=== PATIENT | female | born 1940 | race Caucasian/White ===

== ENCOUNTER → 2017-10-15 | Outpatient (CLI) | payer MEDICARE, OTHER ==
[~2017-10-15] MED LIST: ACETAMINOPHEN-1 EAC1 PO; ASPIRIN; ASPIRIN81 M2 PO; ATENOLOL; ATENOLOL 25 MG25 M1 PG; ATENOLOL 50 MG50 M1 PO; ATIVAN; CELEXA; CELEXA 10 MG TA10 M1 PO; CENTRUM SILVER1 EAC1; COREG25 MG; CYCLOBENZAPRINE10 MG PO; EXFORGE; FISH OIL 1,0001 EAC5 PO; FISHOIL; FLEXERIL; FLEXERIL PO; HCTZ; HYDROCHLOROTHIA25 M1 PO; HYDROCODON-ACE1 EAC5 PO; LORAZEPAM 1 MG T1 M1 PO; LORTAB 5 MG/5001 TA1; MULTIVITAMINS PO; PAIN & FEVER325 MG; PERCOCET 5-3251 EACH PO; PREDNISONE50 MG PO; TRIPLE ANTIBIOT30 G2; VALIUM10 MG; [UNRECOGNIZED DRUG - OTHER]; [UNRECOGNIZED DRUG - OTHER] PO
== END ==
LOC: M.RAD 10:39
DX: M79.671 Pain in right foot (principal); M79.672 Pain in left foot

== ENCOUNTER 2018-11-18 21:07 | Emergency (ER) | payer MEDICARE, OTHER ==
[~2018-11-18] VITALS: Ht 167.6 cm; Wt 127.0 kg
[2018-11-18] MEDS ORDERED: TRAMADOL 50 MG50 MG PO (21:21)
[2018-11-18 22:01] LABS: HEMATOCRIT 42.9 % (37.0-47.0); HEMOGLOBIN 14.4 gm/dL (12.0-15.0); MCH 31.9 pg (26.0-34.0); MCHC 33.5 g/dL (28.0-37.0); MCV 95.1 fL (80.0-100.0); MPV 9.6 fl. (7.2-11.1); NUCLEATED RBCS 0 /100WBC; PLATELET COUNT* 247 thou/uL (150-400); RBC 4.51 mil/uL (4.20-5.00); RDW-CV 14.3 % (10.5-14.5); WBC 13.6 thou/uL (4.0-11.0)
[2018-11-18 22:09] LABS: CALCIUM 9.4 mg/dL (8.5-10.1); CREATININE 0.7 mg/dL (0.6-1.3); POTASSIUM 4.3 mmol/L (3.5-5.1)
[2018-11-18 22:14] LABS: ALBUMIN 3.5 g/dL (3.4-5.0); TOTAL BILIRUBIN 0.6 mg/dL (<0.1-1.0); TOTAL PROTEIN 7.7 g/dL (6.4-8.2)
[2018-11-18 22:34] LABS: ABSOLUTE LYMPHOCYTES 1.6 thou/uL (0.8-5.3); ABSOLUTE MONOCYTES 0.4 thou/uL (0.0-1.2); ABSOLUTE NEUTROPHILS 11.6 thou/uL (1.6-8.1)
[2018-11-18 22:35] LABS: PLATELET ESTIMATE ADEQUATE
[2018-11-18 22:44] LABS: URINE BILIRUBIN NEGATIVE (Negative); URINE BLOOD NEGATIVE (Negative); URINE CLARITY CLEAR; URINE COLOR YELLOW; URINE GLUCOSE-RANDOM NEGATIVE (Negative); URINE KETONES 2+ (Negative); URINE LEUKOCYTES NEGATIVE (Negative); URINE NITRITE NEGATIVE (Negative); URINE PROTEIN 1+ (Negative); URINE SPECIFIC GRAVITY 1.015 (1.005-1.030); URINE UROBILINOGEN 0.2 E.U./dl (0.2-1.0)
[2018-11-18] MEDS ORDERED: ZOFRAN ODT4 MG DISSOLVE (23:32)
[2018-11-18 23:45] VITALS: BP 183/69
== END 2018-11-18 23:45 | disposition home or self-care (01) ==
LOC: M.ERS 21:07
PROVIDERS: Nurse Practitioner Family
DX: R11.2 Nausea with vomiting, unspecified (principal); I10 Essential (primary) hypertension; M48.00 Spinal stenosis, site unspecified; Z96.651 Presence of right artificial knee joint

== ENCOUNTER 2019-06-30 13:43 | Emergency (ER) | payer OTHER ==
[~2019-06-30] VITALS: Ht 165.1 cm; Wt 132.9 kg
[~2019-06-30 13:43] MED LIST changes: +TRAMADOL 50 MG50 MG PO; +ZOFRAN ODT4 MG DISSOLVE
[2019-06-30] MEDS ORDERED: FUROSEMIDE 40 M40 MG PO (14:28)
[2019-06-30 14:49] LABS: ABSOLUTE BASOPHILS 0.1 thou/uL (0.0-0.2); ABSOLUTE EOSINOPHILS 0.2 thou/uL (0.0-0.7); ABSOLUTE LYMPHOCYTES 2.5 thou/uL (0.8-5.3); ABSOLUTE MONOCYTES 0.9 thou/uL (0.0-1.2); ABSOLUTE NEUTROPHILS 7.5 thou/uL (1.6-8.1); BASOPHILS 0.6 %; EOSINOPHILS 1.9 %; HEMATOCRIT 40.4 % (37.0-47.0); HEMOGLOBIN 13.6 gm/dL (12.0-15.0); LYMPHOCYTES 22.8 %; MCH 31.6 pg (26.0-34.0); MCHC 33.7 g/dL (28.0-37.0); MCV 93.6 fL (80.0-100.0); MONOCYTES 7.7 %; MPV 9.3 fl. (7.2-11.1); NUCLEATED RBCS 0 /100WBC; PLATELET COUNT* 273 thou/uL (150-400); RBC 4.32 mil/uL (4.20-5.00); RDW-CV 14.5 % (10.5-14.5); WBC 11.2 thou/uL (4.0-11.0)
[2019-06-30 15:00] LABS: CALCIUM 9.2 mg/dL (8.5-10.1); CREATININE 0.9 mg/dL (0.6-1.3); POTASSIUM 3.7 mmol/L (3.5-5.1)
[2019-06-30] MEDS ORDERED: KEFLEX500 M1 PO (15:32)
[2019-06-30 15:40] VITALS: BP 169/88
== END 2019-06-30 15:41 | disposition home or self-care (01) ==
LOC: M.ERS 13:43
PROVIDERS: Emergency Medicine Emergency Medical Services
DX: L03.116 Cellulitis of left lower limb (principal); I10 Essential (primary) hypertension